=== PATIENT | male | born 1975 | race Caucasian/White ===

== ENCOUNTER → 2017-08-07 | Outpatient (CLI) | payer OTHER ==
[~2017-08-07] MED LIST: HYDR-757 PO; OXYC-143 PO
--- NOTE | 2017-08-07 10:20 | Diagnostic Imaging Report ---
INDICATION: Back injury. Back pain. COMPARISON: None FINDINGS: Frontal and lateral views of the lumbar spine were obtained. Alignment and vertebral heights are maintained. There is no fracture or destructive process. Limited views of the abdomen demonstrate nonobstructive bowel gas pattern. IMPRESSION: 1. Unremarkable radiographic exam of the lumbar spine. Dictated by: Dictated on workstation # [id number]
--- NOTE | 2017-08-07 10:24 | Diagnostic Imaging Report ---
INDICATION: Back pain status post injury. COMPARISON: None. FINDINGS: Frontal and lateral views of the thoracic spine were obtained. Visualization of the upper thoracic spine is limited on the lateral projection. Alignment and vertebral heights are maintained. There is no fracture or destructive process. There are no large paraspinal masses. Mild degenerative disease is noted in the thoracic spine. Limited views of the lungs are clear. IMPRESSION: 1. No acute fracture or dislocation of the thoracic spine. 2. Mild multilevel degenerative changes. Dictated by: Dictated on workstation # [id number]
== END ==
LOC: RAD 08:31
DX: S39.92XA Unspecified injury of lower back, initial encounter (principal); M47.814 Spondylosis without myelopathy or radiculopathy, thoracic region
CPT/HCPCS: 72070; 72100

== ENCOUNTER → 2020-04-03 | Outpatient (CLI) | payer OTHER ==
[~2020-04-03] MED LIST changes: +HYDR-4226 PO; -HYDR-757 PO
--- NOTE | 2020-04-03 10:36 | Diagnostic Imaging Report ---
PROCEDURE: MRI lumbar spine. TECHNIQUE: Multiplanar, multisequence MRI of the lumbar spine was performed without contrast. INDICATION: Severe low back pain. COMPARISON: No prior studies are available for comparison. FINDINGS: There is some straightening of the normal lumbar lordotic curvature. Vertebral body heights are maintained. The marrow signal intensity is unremarkable. No geographic marrow lesion or acute compression fracture is seen. There is very mild loss of height and signal intensity to the L4-L5 and L5-S1 disc compatible with degenerative disc disease. The conus is unremarkable at the T12-L1 level. T12-L1: Central canal and neural foramina are widely patent. L1-L2: Central canal and neural foramina are widely patent. L2-L3: Central canal and neural foramina are widely patent. L3-L4: Central canal and neural foramina are patent. L4-L5: There is broadbase disc bulging with a very mild wide-based midline disc bulge indenting the ventral thecal sac. Central canal remains patent. There is significant narrowing of the lateral recesses bilaterally. There is also moderate narrowing of the bilateral neural foramina. L5-S1: Central canal is patent. There is moderate narrowing of the lateral recesses bilaterally due to disc bulging. There is also moderate right neural foraminal narrowing. Left neural foramen is patent. Paraspinous tissues are unremarkable. IMPRESSION: Lower lumbar spine degenerative disc disease with lateral recess and neural foraminal narrowing described level by level above. No significant central canal stenosis is detected. Dictated by: Dictated on workstation # [id number]
== END ==
LOC: RAD 10:15
DX: M51.17 Intervertebral disc disorders with radiculopathy, lumbosacral region (principal); M48.07 Spinal stenosis, lumbosacral region
CPT/HCPCS: 72148

== ENCOUNTER 2020-06-06 09:48 | Outpatient (RCR) | payer OTHER | END 2020-06-26 | disposition home or self-care (01) | DX: M54.16 Radiculopathy, lumbar region (principal) ==

== ENCOUNTER 2020-07-14 23:24 | Emergency (ER) | payer OTHER ==
[~2020-07-14] VITALS: Ht 172.7 cm; Wt 81.6 kg
[2020-07-15] MEDS ORDERED: TETANUS,DIPTH,PERTUSS P/F (BOOSTRIX) 0.5 ML VIAL IM ONE (01:15)
[2020-07-15] MEDS ORDERED: LIDOCAINE 1% INJ 20 ML 20 ML VIAL ONE ×2 (02:23→02:26)
[2020-07-15] MEDS ORDERED: LIDOCAINE/EPI 2% 1:100,00 (XYLOCAINE) 20 ML VIAL INJ ONE (02:30)
[2020-07-15] MEDS ORDERED: RX-CEPHALEXIN (KEFLEX) 250 MG CAP PPK#4 PO STA (02:56)
[2020-07-15] MEDS ORDERED: CEPH500T PO (03:03)
[2020-07-15] MEDS ORDERED: TRAM-42 PO ×2 (03:03→03:04)
--- NOTE | 2020-07-15 03:04 | ED Fall/Injury ---
General Chief Complaint: Trauma-Non Activation Stated Complaint: LACERATION ON CHIN, FACIAL PAIN Nursing Triage Note: TO ED VIA POV AND AMBULATORY TO ROOM 5. PT STATES WHILE WALKING DOWN [address] HE TRIPPED AND FELL AND LANDED ON BILAT HANDS AND FACE. HE STATES HE CHIPPED TEETH, HAS NOTICEABLE CHIN LAC WITH BUTTERFLY BANDAGE IN PLACE, ABRASION TO NOSE, C/O RIGHT WRIST PAIN, LEFT INDEX FINGER PAIN, JAW PAIN. DENIES LOC. DENIES N/V. PT STATES HE HAD JUST LEFT [employer] AT [facility] [id number] TONIGHT AND HAD A COUPLE OF DRINKS WITH DINNER. Source: patient History of Present Illness Date Seen by Provider: July 15, 2020 Time Seen by Provider: 00:55 Initial Comments PT ARRIVES VIA POV STATES AROUND [id number] TONIGHT, HE WAS WALKING DOWN A [address], AFTER LEAVING A RESTAURANT, AND TRIPPED AND FELL FORWARD ONTO OUTSTRETCHED HANDS AND HIT FACE/CHIN ON THE BRICK NO LOSS OF CONSCIOUSNESS NO VISION CHANGES NO NAUSEA/VOMITING NO DIZZINESS NO PARESTHESIAS OR MOTOR DEFICITS NO NECK OR BACK PAIN PT HAS LACERATION TO CHIN C/O JAW PAIN, AND FEELS LIKE TEETH DON'T LINE UP NORMALLY HAS 2 LOWER LEFT TEETH BROKEN OFF--ONE MOLAR AND ONE CANINE TOOTH. C/O PAIN TO LEFT INDEX FINGER C/O PAIN TO RIGHT WRIST AND HAND/PALM PAIN NO CHEST OR ABDOMINAL PAIN NO LEG/HIP PAIN PT HAS HAD 3-4 DRINKS TONIGHT. LAST TETANUS VACCINATION IS > 5 YEARS. Allergies and Home Medications Allergies Coded Allergies: penicillin (Verified Allergy, Unknown, 09/20/14) Home Medications Cephalexin 500 Mg Tablet, 500 MG PO QID Prescribed by: DAIN ISAACS on 07/15/20 0303 Hydrocodone/Acetaminophen 1 Each Tablet, 1 EACH PO Q4H PRN for PAIN Prescribed by: ELGIN SUTHERLAND on 12/09/15 1206 Tramadol HCl 50 Mg Tablet, 50 MG PO Q4H Prescribed by: DAIN ISAACS on 07/15/20 0304 Past Cumkqoz-Ngsiqf-Kelesz Hx Patient Social History Alcohol Use: Regular Use Number of Drinks Today: 2 Smoking Status: Never a Smoker Recent Infectious Disease Expo: No Recent Hopitalizations: No Immunizations Up To Date Tetanus Booster (TDap): More than 5yrs Past Medical History Surgeries: Yes Orthopedic Respiratory: No Cardiac: Yes High Cholesterol Neurological: No Gastrointestinal: No Musculoskeletal: Yes Degenerate Disk Disease, Fractures Endocrine: No Cancer: No Psychosocial: No Integumentary: No Blood Disorders: No Adverse Reaction/Blood Tranf: No Family Medical History No Pertinent Family Hx Physical Exam Vital Signs Vital Signs - First Documented Capillary Refill : Less Than 3 Seconds Height, Weight, BMI Height: 5'9" Weight: 180lbs. oz. 81.967362nt; 27.00 BMI Method:Stated Procedures/Interventions Wound Location: Face Other Wound Location CHIN Wound Length (cm): 2.5 Wound's Depth, Shape: linear, sub Q Wound Explored: clean Irrigated w/ Saline (ccs): 50 Betadine Prep?: No (BETASEPT) Anesthesia: 1% Lidocaine Suture: Prolene Suture Size: 4-0 Number of Sutures: 6 Layer Closure?: 1 Sterile Dressing Applied?: Yes Progress/Results/Core Measures Results/Orders My Orders Orders - DAIN ISAACS DO Ct Head/Face/Cervical Wo (07/15/20 01:07) Wrist, Right, 3 Views Or More (07/15/20 01:07) Hand, Left, 3 Views (07/15/20 01:07) Hand, Right, 3 Views (07/15/20 01:07) Dipht,Pertuss(Acell),Tet Adult (Boostrix (07/15/20 01:15) Lidocaine/Epi 2% 1:100,000 (Xylocaine/Ep (07/15/20 02:30) Lidocaine 1% Inj 20 Ml (Xylocaine 1% Inj (07/15/20 02:23) Lidocaine 1% Inj 20 Ml (Xylocaine 1% Inj (07/15/20 02:26) Rx-Cephalexin Capsule (Rx-Keflex Capsule (07/15/20 02:56) Rx-Tramadol Hcl (Rx-Ultram) (07/15/20 02:57) Medications Given in ED Current Medications Medications Dose Ordered Sig/Antony Route Start Time Stop Time Status Last Admin Dose Admin Diphtheria/ Tetanus/Acell Pertussis 0.5 ml ONCE ONCE IM 07/15/20 01:15 07/15/20 01:16 DC 07/15/20 03:24 0.5 ML Lidocaine HCl 20 ml STK-MED ONCE .ROUTE 07/15/20 02:26 07/15/20 02:35 DC 07/15/20 03:24 20 ML Vital Signs/I&O 07/15/20 07/15/20 07/15/20 00:42 00:42 03:25 Temp 36.7 36.7 36.7 Pulse 90 90 90 Resp 16 16 16 B/P (MAP) 156/93 (114) 156/93 (114) 156/93 (114) Pulse Ox 100 100 100 O2 Delivery Room Air Room Air Blood Pressure Mean: 114 Progress Progress Note : Progress Note DPT VACCINATION GIVEN DELAY IN OBTAINING CT AND THEN IN OBTAINING RESULTS Diagnostic Imaging Comments CT HEAD/MAXILLOFACIALS/CERVICAL SPINE--NO ACUTE PROCESS, PER [facility] VIA FAX AT 9193 XRAYS--ALL PENDING RADIOLOGIST REVIEW RIGHT HAND--NO ACUTE PROCESS RIGHT WRIST--NO ACUTE PROCESS LEFT HAND--NO ACUTE PROCESS Reviewed: Reviewed by Me Departure Impression Primary Impression: s/p fall FROM STANDING Additional Impressions: Chin laceration MANDIBULAR CONTUSION Cervical strain Vqfzhkorfo-kysizrqym-wtucdxh (DPT) vaccination administered at current visit Sprain of right wrist Sprain of left index finger Nasal abrasion Broken tooth injury Disposition: HOME, SELF-CARE Condition: Stable Departure-Patient Inst. Referrals: ROSALINDA MONTELONGO MD (PCP/Family) Primary Care Physician Patient Instructions: Abrasions ED, Cervical Muscle Strain (DC), Fractured Tooth (DC), Laceration Repair With Stitches ED, Wrist Sprain ED Add. Discharge Instructions: ICE TO SORE AREAS AT 20 MINUTE INTERVALS CLEAN WOUND TWICE A DAY WITH ANTIBACTERIAL SOAP AND WATER ON A Q-TIP, OTHERWISE KEEP CLEAN AND DRY SUTURES OUT IN 5-7 DAYS TYLENOL AND MOTRIN NEEDED FOR PAIN FOLLOW UP WITH DENTIST ON FRIDAY FOR FURTHER CARE OF DENTAL INJURY All discharge instructions reviewed with patient and/or family. Voiced understanding. Scripts Tramadol HCl (Ultram) 50 Mg Tablet 50 MG PO Q4H for Pain, #20 TAB Prov: DAIN ISAACS DO 07/15/20 Cephalexin (Cephalexin) 500 Mg Tablet 500 MG PO QID, #40 TAB Prov: DAIN ISAACS DO 07/15/20 DAIN ISAACS DO July 15, 2020 03:04
[2020-07-15 03:25] VITALS: BP 156/93
--- NOTE | 2020-07-15 06:41 | Diagnostic Imaging Report ---
PROCEDURE: CT head, face, and cervical spine without contrast. TECHNIQUE: Multiple contiguous axial images were obtained through the head, neck, and facial bones without the use of intravenous contrast. Sagittal and coronal reformations through the cervical spine and facial bones were also performed. Auto Exposure Controls were utilized during the CT exam to meet ALARA standards for radiation dose reduction. INDICATION: Trauma with laceration to the chin. Correlation is made with prior CT from 12/09/2015. CT HEAD: The ventricles and sulci are within normal limits. No sulcal effacement or midline shift is identified. No acute intra-axial or extra-axial hemorrhage is detected. The cisterns are patent. The visualized paranasal sinuses are clear. IMPRESSION: No acute intracranial process is detected. CT cervical spine: The curvature and alignment of the cervical spine is normal. There is generalized spondylosis with variable disc space narrowing and marginal spurring, greatest at C6-C7 and C7-T1 levels. Prevertebral tissues are within normal limits. No fracture or subluxation is identified. Odontoid is intact. IMPRESSION: Cervical spondylosis. No acute bony abnormality is detected. CT face: The mandible is intact. Zygomatic arches are intact. The maxillary sinus sanchez and nasal bones are intact. Sanchez of the orbits appear to be intact. IMPRESSION: No facial bone fracture is identified. Dictated by: Dictated on workstation # [id number]
--- NOTE | 2020-07-15 06:42 | Diagnostic Imaging Report ---
HISTORY: Left hand pain, trauma COMPARISON: None TECHNIQUE: 3 views of the left hand FINDINGS: No acute fracture or dislocation is seen in the left hand. Alignment appears normal. Joint spaces are preserved. A metal ring overlies the 4th proximal phalanx. IMPRESSION: 1. No acute osseous abnormality is seen in the left hand. Dictated by: Dictated on workstation # [id number]
--- NOTE | 2020-07-15 06:48 | Diagnostic Imaging Report ---
HISTORY: Right wrist pain. TECHNIQUE: 3 views of the right wrist COMPARISON: None FINDINGS: No acute fracture or dislocation is seen in the right wrist. Alignment appears normal. Joint spaces are preserved. IMPRESSION: 1. No acute osseous abnormality is seen in the right wrist. Dictated by: Dictated on workstation # [id number]
--- NOTE | 2020-07-15 06:50 | Diagnostic Imaging Report ---
HISTORY: Right hand pain TECHNIQUE: 3 views of the right hand COMPARISON: None FINDINGS: No acute fracture or dislocation is seen in the right hand. Alignment appears normal. Joint spaces are preserved. IMPRESSION: 1. No acute osseous abnormality is seen in the right hand. Dictated by: Dictated on workstation # [id number]
== END 2020-07-15 03:25 | disposition home or self-care (01) ==
LOC: EDUNIT# 23:24 → ER 23:26
DX: S16.1XXA Strain of muscle, fascia and tendon at neck level, initial encounter (principal); S63.501A Unspecified sprain of right wrist, initial encounter; S63.611A Unspecified sprain of left index finger, initial encounter; S01.81XA Laceration without foreign body of other part of head, initial encounter; S09.93XA Unspecified injury of face, initial encounter; Z23 Encounter for immunization; Z88.0 Allergy status to penicillin; W01.0XXA Fall on same level from slipping, tripping and stumbling without subsequent striking against object, initial encounter
CPT/HCPCS: 12051; 70450; 70486; 72125; 73110; 73130; 90715

== ENCOUNTER 2020-07-20 09:13 | Emergency (ER) | payer OTHER ==
[~2020-07-20] VITALS: Ht 5 cm; Wt 6.0 kg
[~2020-07-20 09:13] MED LIST changes: +CEPH500T PO; +TRAM-42 PO
[2020-07-20 09:20] VITALS: BP 0/0
== END 2020-07-20 09:27 | disposition home or self-care (01) ==
LOC: EDUNIT# 09:13 → ER 09:15
DX: S01.81XD Laceration without foreign body of other part of head, subsequent encounter (principal); X58.XXXD Exposure to other specified factors, subsequent encounter

== ENCOUNTER 2022-12-25 06:12 | Outpatient (CLI) | payer OTHER ==
[~2022-12-25] VITALS: Ht 175.3 cm; Wt 85.7 kg
[2022-12-25] MEDS ORDERED: HYDR12.56 PO (09:33)
[2022-12-25] MEDS ORDERED: LISI40TA9 PO (09:33)
[2022-12-25] MEDS ORDERED: TRAM50TA3 PO (09:33)
[2022-12-25] MEDS ORDERED: OMEG1CAP58 PO (09:33)
== END 2022-12-25 09:34 | disposition home or self-care (01) ==
LOC: PREOP 06:12
PROVIDERS: ATTEND Internal Medicine
DX: Z01.818 Encounter for other preprocedural examination (principal)

== ENCOUNTER 2022-12-27 10:12 | Day surgery (SDC) | payer OTHER ==
--- NOTE | 2022-12-23 07:52 | HISTORY AND PHYSICAL ---
COLONOSCOPY HISTORY AND PHYSICAL HISTORY OF PRESENT ILLNESS: The patient is a 47-year-old white male being referred for his first screening colonoscopy. He does have a history of mother who has had colon polyps. He is not aware of any family history for colon cancer. He denies bright red blood per rectum, change in bowel habits, abdominal pain or change in weight. PAST MEDICAL HISTORY: Significant for hypertension and a history of some gross hematuria earlier this year. He has not had any evidence for recurrence of gross hematuria. He has had no flank pain, dysuria or urinary frequency. There is family history for bladder cancer in his father who was a smoker. The patient does not smoke. No significant alcohol consumption history. No history of radiation. PHYSICAL EXAMINATION: GENERAL: Reveals a white male, appeared to be in no acute distress. VITAL SIGNS: Blood pressure 122/84, weight is stable at 189 pounds. HEENT: Unremarkable. No evidence for pallor. Sclerae are nonicteric. CHEST: Clear to auscultation. CARDIOVASCULAR: Reveals regular rate and rhythm without murmur, S3 or S4. ABDOMEN: Soft, supple without mass, organomegaly, or tenderness. EXTREMITIES: Revealed no cyanosis, clubbing or edema. ASSESSMENT AND PLAN: 1. Isolated history of gross hematuria. We did repeat UA today, which revealed no evidence for microscopic hematuria, unremarkable microscopy with no evidence for cells or bacteria, unremarkable dipstick evaluation. The patient reassured, no need for further investigation, and return for recurrence of symptoms. 2. The patient is being set up for his first screening colonoscopy, deemed to be of average risk. Prep instructions were given and questions were answered. Job ID: [id number] DocumentID: [id number] Dictated Date: 12/18/2022 16:49:18 News Operations Manager Date: 12/18/2022 17:43:00 Dictated By: JACKLYN PATEL MD
[~2022-12-27] VITALS: Ht 175 cm; Wt 85.7 kg
[~2022-12-27 10:12] MED LIST changes: +HYDR12.56 PO; +LISI40TA9 PO; +OMEG1CAP58 PO; +TRAM50TA3 PO
[2022-12-27] MEDS ORDERED: LACTATED RINGERS 1,000 ML 1,000 ML IV STA (10:13)
[2022-12-27 10:25] VITALS: BP 129/90
--- NOTE | 2022-12-27 10:51 | Pre-Op Note & Conscious Sedat ---
Pre-Operative Progress Note Date H&P Reviewed: Dec 27, 2022 Time H&P Reviewed: 10:51 History & Physical: H&P Reviewed, Patient Examed, No changes noted Pre-Op Diagnosis: screening Moderate Sedation PreProcedure ASA Score 2 Airway Lungs Heart ASA score ASA 1: a normal healthy patient ASA 2: a patient with a mild systemic disease (mid diabetes, controlled hypertension, obesity ASA 3: a patient with a severe systemic disease that limits activity (angina, COPD, prior Myocardial infarction) ASA 4: a patient with an incapacitating disease that is a constant threat to life (CHF, renal failure) ASA 5: a moribund patient not expected to survive 24 hrs. (ruptured aneurysm) ASA 6: a declared brain- patient whose organs are being harvested. For emergent operations, add the letter E after the classification Mallampati Classification Grade 1 Sedation Plan Analgesia, Amnesia, Plan communicated to team members, Discussed options with patient/fam, Discussed risks with patient/fam The patient is an appropriate candidate to undergo the planned procedure, sedation, and anesthesia. The patient immediately re-assessed prior to indication. JACKLYN PATEL MD Dec 27, 2022 10:51
--- NOTE | 2022-12-27 11:45 | Anesthesia-General Post-Op ---
MAC Patient Condition Mental Status/LOC: Same as Preop Cardiovascular: Satisfactory Nausea/Vomiting: Absent Respiratory: Satisfactory Pain: Controlled Complications: Absent Post Op Complications Complications None Follow Up Care/Instructions Patient Instructions None needed. Anesthesiology Discharge Order Discharge Order Patient is doing well, no complaints, stable vital signs, no apparent adverse anesthesia problems. No complications reported per nursing. MICHELLE WARREN CRNA Dec 27, 2022 11:45
--- NOTE | 2022-12-27 11:46 | Progress Note-Post Operative ---
Post-Procedure Note Physician (s)/Thickener Operator (s) Physician JACKLYN PATEL MD Pre-Procedure Diagnosis Pre-Procedure Diagnosis: screening Post-Procedure Diagnosis Post-operative diagnosis: Prior to undergoing colonoscopy digital rectal evaluation was performed. Anal sphincter tone was normal and the perianal reflex intact. Prostate is normal in size and a nodular on digital inspection. No abnormalities are noted on digital inspection anal canal or distal rectal vault. The colonoscope was then inserted into the rectum and under direct visualization advanced to the cecum. The cecum was identified by identification of the AVILA valve cecal strap and appendiceal orifice. Documentation was obtained. Careful inspection was made as the colonoscope withdrawn. Quality the prep was good. Findings there are no evidence for internal/external hemorrhoids in the rectum and sigmoid colon were unremarkable no evidence of diverticular disease. A 2 mm sessile polyp was noted in the mid ascending colon it was removed via cold polypectomy no blood loss. The splenic flexure transverse colon hepatic flexure ascending colon and cecum were unremarkable. A/P 1. 1 diminutive polyp was removed via cold polypectomy from the descending colon with an otherwise normal colonoscopy to the cecum. We will advocate repeat screening colonoscopy in 10 years. JACKLYN PATEL MD Dec 27, 2022 11:46
[2022-12-27 11:50] VITALS: BP 108/67
[2022-12-27 11:54] VITALS: BP 112/72
[2022-12-27 12:00] VITALS: BP 129/90
[2022-12-27 12:30] VITALS: BP 129/90
== END 2022-12-27 12:30 | disposition home or self-care (01) ==
LOC: ENDO 10:12
PROVIDERS: ATTEND Internal Medicine
DX: Z12.11 Encounter for screening for malignant neoplasm of colon (principal); K63.5 Polyp of colon